=== PATIENT | male | born 1970 | race Caucasian/White ===

== ENCOUNTER → 2017-11-29 | Outpatient (CLI) | payer OTHER ==
[2017-11-29 08:52] LABS: Sodium 129 mmol/L (136-145)
[2017-11-29 08:54] LABS: Alkaline Phosphatase 67 U/L (45-117); Anion Gap 17 (5-15); Aspartate Aminotransferase 38 U/L (15-37); Blood Urea Nitrogen 1 mg/dL (7-18); Carbon Dioxide 22 mmol/L (21-32); Chloride 90 mmol/L (98-107); GFR African American 104 mL/min; GFR Non-African American 86 mL/min; Glucose 184 mg/dL (74-106); Potassium 2.9 mmol/L (3.5-5.1)
[2017-11-29 08:55] LABS: Alanine Aminotransferase 46 U/L (16-61); Bilirubin, Total 1.5 mg/dL (0.2-1.0); Calcium 8.3 mg/dL (8.5-10.1); Total Protein 6.7 g/dL (6.4-8.2)
[2017-11-29 08:56] LABS: Lymphocytes % (auto) 15.3 % (10.0-50.0); Neutrophils % (auto) 74.6 % (37.0-80.0); White Blood Cell 3.8 10^3/uL (4.4-10.8)
[2017-11-29 08:57] LABS: Basophils # (auto) 0 uL; Basophils % (auto) 0.7 % (0.0-2.0); Eosinophils # (auto) 0 uL; Eosinophils % (auto) 0.9 % (0.0-7.0); Lymphocytes # (auto) 0.6 uL; Monocytes # (auto) 0.3 uL; Monocytes % (auto) 8.5 % (0.0-12.0); Neutrophils # (auto) 2.8 uL; Nucleated Red Blood Cells % 0.1 %
[2017-11-29 08:58] LABS: Hematocrit 40.9 % (41.0-53.0); Hemoglobin 14.7 g/dL (13.5-17.5); Mean Corpuscular Hemoglobin 31.2 pg (28.0-32.0); Mean Corpuscular Volume 86.7 fL (80.0-100.0); Red Blood Cells 4.72 10^6/uL (4.5-5.90); Red Cell Distribution Width 13.1 % (11.8-14.3)
[2017-11-29 08:59] LABS: Platelet Count (auto) 130 10^3/uL (140-450)
== END | disposition home or self-care (01) ==
LOC: LAB 07:29
DX: Z01.89 Encounter for other specified special examinations (principal)
CPT/HCPCS: 36415; 80053; 82040; 84443; 85025